=== PATIENT | female | born 1940 | race African-American/Black ===

== ENCOUNTER 2016-08-10 19:07 | Emergency (ER) | payer MEDICARE, MEDICAID ==
--- NOTE | 2016-08-10 19:26 | ER Document Report ---
ED Respiratory Problem - General Stated Complaint: GAGGING Time seen by provider: 19:26 Mode of Arrival: Stretcher Information source: Relative, Emergency Med Personnel TRAVEL OUTSIDE OF THE [place] IN LAST 30 DAYS: No - HPI Patient complains to provider of: Cough Onset: Just prior to arrival Duration: Better Quality of pain: No pain Cough: Nonproductive Associated symptoms: Cough Similar symptoms previously: Yes Notes: Patient is a 75-year-old female sent from local intermediate for cough, choking episode while trying to eat this evening, EMS reports that she recovered from this episode but daughter insisted that she be brought to the emergency room for evaluation, daughter at bedside reports that over the past 2 weeks patient' s condition has declined, she has a wet cough that is nonproductive and she has been having trouble eating - Related Data Allergies/Adverse Reactions: No Known Allergies Allergy (Verified 01/29/15 16:41) Past Medical History - General Information source: Relative, Outside Facility Records - Social History Smoking Status: Never Smoker Family History: Reviewed & Not Pertinent - Past Medical History Cardiac Medical History: Reports: Hx Hypercholesterolemia, Hx Hypertension Endocrine Medical History: Reports: Hx Diabetes Mellitus Type 2, Hx Hypothyroidism Malignancy Medical History: Reports: Hx Breast Cancer GI Medical History: Reports: Hx Gastroesophageal Reflux Disease Musculoskeltal Medical History: Reports Hx Arthritis, Reports Hx Muscle Weakness Psychiatric Medical History: Reports: Hx Anxiety, Hx Dementia, Hx Depression Past Surgical History: Reports: Hx Mastectomy - Left - Immunizations Hx Diphtheria, Pertussis, Tetanus Vaccination: Yes Review of Systems - Review of Systems Constitutional: No symptoms reported. denies: Fever EENT: No symptoms reported Cardiovascular: No symptoms reported Respiratory: Cough Gastrointestinal: No symptoms reported Genitourinary: No symptoms reported Female Genitourinary: No symptoms reported Musculoskeletal: No symptoms reported Skin: No symptoms reported Hematologic/Lymphatic: No symptoms reported Neurological/Psychological: Confusion -: Yes All other systems reviewed and negative Physical Exam - Vital signs Vitals: Temp Pulse Resp BP Pulse Ox 98.5 F 70 16 115/86 H 100 08/10/16 19:17 08/10/16 19:17 08/10/16 19:17 08/10/16 19:17 08/10/16 19:17 Interpretation: Normal - General General appearance: Alert In distress: None - HEENT Head: Normocephalic, Atraumatic Eyes: Normal Conjunctiva: Normal Extraocular movements intact: Yes Eyelashes: Normal Pupils: PERRL Mucous membranes: Normal Pharynx: Normal Neck: Normal - Respiratory Respiratory status: No respiratory distress Chest status: Nontender Breath sounds: Normal, Nonproductive cough Chest palpation: Normal - Cardiovascular Rhythm: Regular Heart sounds: Normal auscultation - Abdominal Inspection: Normal Distension: No distension Bowel sounds: Normal Tenderness: Nontender Organomegaly: No organomegaly - Back Back: Normal - Extremities General upper extremity: Other - Contracted General lower extremity: Other - Contracted - Neurological Alla Coma Scale Eye Opening: None Alla Coma Scale Verbal: Incomprehensible Alla Coma Scale Motor: Withdraws to Pain El[place] Coma Scale Total: 7 - Skin Skin Temperature: Warm Skin Moisture: Dry Skin Color: Normal Course - Re-evaluation Re-evalutation: 08/10/16 23:45 Patient was discussed with primary care provider, Dr. Bazzi, who recommends patient be started on antibiotics orally, and be discharged back to the intermediate, he will follow-up with patient for further evaluation and treatment This plan was discussed with patient's daughter who was quite insistent that patient needed to be admitted to the hospital because she has been declining over the past 2 weeks and she is fairly certain that she will "not make it the next 2-3 days at [facility]", I explained to patient's daughter that patient's vital signs have been stable since she has been in the emergency room , her blood work is normal, her chest x-ray shows no abnormalities, the only abnormality we found in the emergency room today is a urinary tract infection that should clear up with PO antibiotics 08/11/16 00:07 I went back in the room to speak with patient's daughter about my conversation with the primary care provider, she made a point to express her displeasure at the care that her mother received today, she inquired as to why patient did not get IV antibiotics or IV fluids and stated "she can be well on her way to recovery at this point if this was done already", she was also concerned that patient did not get anything to eat while in the emergency room, I attempted to explain to patient's daughter, Lucita, that based on patient's vital signs, blood work and physical exam finding she did not require IV fluids or IV antibiotics, she stated that her mother is now leaving the department in the same condition she came, to which I pointed out that she came in stable condition and we will be discharging her in stable condition, her vital signs have been stable, her workup is fairly unremarkable except for a urinary tract infection without serum leukocytosis, her chest x-ray is without acute findings , Lucita continued to express her displeasure at the fact that patient has been here in the emergency room for "several hours" and she feels as though "nothing has been done for her", at this point in time patient has been in the emergency room for a total of 5 hours, she was difficult to obtain blood from so I spent a considerable amount of time in the room with an ultrasound attempting to gain IV access and was able to get blood myself with nursing assistance, a catheterized urine was completed, and a chest x-ray was completed , patient remained on the monitor during her entire stay in the emergency room and her vital signs have remained stable the entire time, her blood work shows no signs of malnutrition or dehydration and she is ready to be discharged at this point in time, however while we are awaiting transport I will provide patient with some IV fluids and we will attempt to provide her with some by mouth intake as well - Vital Signs Vital signs: Temp Pulse Resp BP Pulse Ox 98.5 F 70 16 105/81 97 08/10/16 19:17 08/10/16 19:17 08/11/16 03:02 08/11/16 03:02 08/11/16 03:02 - Laboratory Result Diagrams: 08/10/16 22:21 08/10/16 22:21 Laboratory results interpreted by me: 08/10/16 08/10/16 20:20 22:21 Chloride 108 H Urine Nitrite POSITIVE H Ur Leukocyte Esterase SMALL H Urine Ascorbic Acid 40 H - Diagnostic Test Radiology reviewed: Image reviewed, Reports reviewed - EKG Interpretation by [place] EKG shows normal: Sinus rhythm Rate: Bradycardia Discharge - Discharge Clinical Impression: Urinary tract infection Qualifiers: Urinary tract infection type: site unspecified Hematuria presence: without hematuria Qualified Code(s): N39.0 - Urinary tract infection, site not specified Condition: Stable Disposition: HOME, SELF-CARE Instructions: Urinary Tract Infection ([facility]) Additional Instructions: Follow up with your primary care provider in one to 2 days. Return to the emergency room immediately if symptoms worsen or any additional concerns. Prescriptions: Nitrofurantoin/Nitrofuran Mac [Macrobid 100 mg Capsule] 100 mg PO BID #20 capsule Referrals: JOE BAZZI MD [Primary Care Provider] - Follow up as needed
[2016-08-10 22:10] LABS: APPEARANCE,URINE SLIGHTLY-CLOUDY; BILIRUBIN,URINE NEGATIVE (NEGATIVE); GLUCOSE, URINE NEGATIVE (NEGATIVE); KETONES,URINE NEGATIVE (NEGATIVE); LEUKOCYTE ESTERASE,URINE SMALL (NEGATIVE); NITRITE,URINE POSITIVE (NEGATIVE); PROTEIN,URINE NEGATIVE (NEGATIVE); URINE SPECIFIC GRAVITY 1.019; UROBILINOGEN,URINE NEGATIVE mg/dL (<2.0)
[2016-08-10 22:36] LABS: ABSOLUTE BASOPHILS # (AUTO) 0.1 10^3/uL (0.0-0.2); ABSOLUTE EOSINOPHILS # (AUTO) 0.3 10^3/uL (0.0-0.6); ABSOLUTE LYMPHOCYTES (AUTO) 2.9 10^3/uL (0.5-4.7); ABSOLUTE MONOCYTES (AUTO) 0.8 10^3/uL (0.1-1.4); EOSINOPHILS % (AUTO) 3.6 % (0-6); HEMATOCRIT 37.2 % (36.0-47.0); HEMOGLOBIN 12.6 g/dL (12.0-15.5); HGB HCT DIFFERENCE 0.6; LYMPHOCYTES % (AUTO) 41.5 % (13-45); MEAN CORPUSCULAR HEMOGLOBIN 31.4 pg (27.0-33.4); MEAN CORPUSCULAR HGB CONC 33.9 g/dL (32.0-36.0); MEAN CORPUSCULAR VOLUME 93 fl (80-97); MONOCYTES % (AUTO) 10.9 % (3-13); RED BLOOD COUNT 4.01 10^6/uL (3.72-5.28); RED CELL DISTRIBUTION WIDTH 13.4 % (11.5-14.0)
[2016-08-10 22:50] LABS: ALANINE AMINOTRANSFERASE 33 U/L (9-52); ALBUMIN 3.8 g/dL (3.5-5.0); ALKALINE PHOSPHATASE 81 U/L (38-126); ANION GAP 9 (5-19); ASPARTATE AMINO TRANSFERASE 28 U/L (14-36); BILIRUBIN,TOTAL 0.4 mg/dL (0.2-1.3); BLOOD UREA NITROGEN 15 mg/dL (7-20); CALCIUM 9.3 mg/dL (8.4-10.2); CARBON DIOXIDE 26 mmol/L (22-30); CHLORIDE 108 mmol/L (98-107); CREATININE RESULT 0.89 mg/dL (0.52-1.25); GLUCOSE 98 mg/dL (75-110); POTASSIUM 4.2 mmol/L (3.6-5.0); SODIUM 143.4 mmol/L (137-145); TOTAL PROTEIN 7.5 g/dL (6.3-8.2)
[2016-08-10] MEDS ORDERED: NITROFURANTOIN MONOHYD/M-CRYST 100 MG CAPSULE PO ONE (23:47)
[2016-08-11] MEDS ORDERED: NORMAL SALINE 1000 ML 1,000 ML IV PRN (00:11)
[2016-08-11] MEDS ORDERED: CEFTRIAXONE INJ 1000 MG VIAL IV ONE (00:12)
[2016-08-11 03:25] VITALS: BP 105/81
--- NOTE | 2016-08-11 08:02 | EKG REPORT ---
SEVERITY:- NORMAL ECG - SINUS RHYTHM : Confirmed by: Howard Quintana MD 11-Aug-2016 08:01:59
== END 2016-08-11 03:26 | disposition home or self-care (01) ==
LOC: ER 19:07
DX: N39.0 Urinary tract infection, site not specified (principal); R63.3 Feeding difficulties; R05 Cough; I10 Essential (primary) hypertension; E11.9 Type 2 diabetes mellitus without complications; R41.0 Disorientation, unspecified; R00.1 Bradycardia, unspecified; Z85.3 Personal history of malignant neoplasm of breast
CPT/HCPCS: 93005; 99285; 96361; 51701; 96365; 36415; 87086; 85025; 87088; 80053; 81001; 87186; 83880; 71010; 93010; J0696; J7030; A9270; J8499

== ENCOUNTER → 2017-02-17 | Outpatient (CLI) | payer MEDICARE, MEDICAID ==
[2017-02-17 11:33] LABS: ARTERIAL BLOOD BASE EXCESS 1.5 mmol/L; ARTERIAL BLOOD O2 SATURATION 96.8 % (94-98)
== END ==
LOC: LAB 10:47
PROVIDERS: ATTEND Internal Medicine
DX: R79.81 Abnormal blood-gas level (principal); E11.9 Type 2 diabetes mellitus without complications; D64.9 Anemia, unspecified; E03.9 Hypothyroidism, unspecified
CPT/HCPCS: 36600; 82803

== ENCOUNTER 2017-02-24 20:54 | Observation (INO) | payer MEDICARE, MEDICAID ==
--- NOTE | 2017-02-24 21:21 | ER Document Report ---
ED Fever - General Chief Complaint: Fever Stated Complaint: FEVER AND EVAL Time Seen by Provider: 02/24/17 21:17 Notes: The patient is a 76-year-old female, past medical history multiple CVAs, nonverbal, presents from [facility] by EMS with her daughter after she was having increased coughing and a temperature of 100.1 at the retirement. Patient's mental status is at baseline, according to daughter. Unable to provide any additional history. TRAVEL OUTSIDE OF THE [place] IN LAST 30 DAYS: No - Related Data Allergies/Adverse Reactions: No Known Allergies Allergy (Verified 01/29/15 16:41) Past Medical History - General Information source: Patient - Social History Smoking Status: Unknown if Ever Smoked Family History: Reviewed & Not Pertinent - Past Medical History Cardiac Medical History: Reports: Hx Hypercholesterolemia, Hx Hypertension Endocrine Medical History: Reports: Hx Diabetes Mellitus Type 2, Hx Hypothyroidism Malignancy Medical History: Reports: Hx Breast Cancer GI Medical History: Reports: Hx Gastroesophageal Reflux Disease Musculoskeltal Medical History: Reports Hx Arthritis, Reports Hx Muscle Weakness Psychiatric Medical History: Reports: Hx Anxiety, Hx Dementia, Hx Depression Past Surgical History: Reports: Hx Mastectomy - Left - Immunizations Hx Diphtheria, Pertussis, Tetanus Vaccination: Yes Review of Systems - Review of Systems -: Yes ROS unobtainable due to patient's medical condition Physical Exam - Vital signs Vitals: Temp 97.5 F 02/24/17 21:05 - Notes Notes: PHYSICAL EXAMINATION: GENERAL: Well-appearing, well-nourished and in no acute distress. HEAD: Atraumatic, normocephalic. EYES: Pupils equal round and reactive to light, extraocular movements intact, sclera anicteric, conjunctiva are normal. ENT: nares patent, oropharynx clear without exudates. Moist mucous membranes. NECK: Normal range of motion, supple without lymphadenopathy LUNGS: No respiratory distress. Lungs CTAB. Upper airway noises. HEART: Regular rate and rhythm without murmurs ABDOMEN: Soft, nontender, normoactive bowel sounds. No guarding, no rebound. No masses appreciated. EXTREMITIES: Contracted upper extremities. NEUROLOGICAL: At baseline. PSYCH: Normal mood, normal affect. SKIN: Warm, Dry, normal turgor, no rashes or lesions noted. Course - Re-evaluation Re-evalutation: Patient's mental status is at baseline, according to the daughter. She has evidence of a UTI on urinalysis and is afebrile in the emergency room. Her labs are unremarkable. Will discharge patient home with Keflex for possible early pyelonephritis and follow-up at primary care physician. - Vital Signs Vital signs: Temp Pulse Resp BP Pulse Ox 97.5 F 02/24/17 21:05 - Laboratory Result Diagrams: 02/24/17 21:09 02/24/17 21:09 Laboratory results interpreted by me: 02/24/17 02/24/17 02/24/17 21:09 21:09 21:36 Hgb 11.8 L Hct 35.4 L RDW 14.2 H Seg Neutrophils % 40.0 L Est GFR (Non-Af Amer) 50 L Glucose 135 H Urine Blood MODERATE H Ur Leukocyte Esterase LARGE H Urine Ascorbic Acid 40 H - Diagnostic Test Radiology reviewed: Image reviewed, Reports reviewed Radiology results interpreted by me: CXR: NAD Discharge - Discharge Clinical Impression: UTI (urinary tract infection) Qualifiers: Urinary tract infection type: site unspecified Hematuria presence: with hematuria Qualified Code(s): N39.0 - Urinary tract infection, site not specified ; R31.9 - Hematuria, unspecified Condition: Stable Disposition: HOME, SELF-CARE Additional Instructions: URINARY TRACT INFECTION: Your evaluation indicates that you have a urinary tract infection. This is due to germs growing in the bladder. This is a common problem. This infection usually responds quickly to antibiotics. Your antibiotic should be taken exactly as prescribed. Drink plenty of fluids -- three to four quarts a day. Occasionally, a bladder anesthetic will be prescribed to help stop the feeling of urgency until the antibiotic has a chance to clear the infection. This may cause your urine to be dark orange. Certain urine infections require a culture. If the doctor obtained a culture, the results will be back in two days. You should call to see if a change in treatment is needed. A repeat urinalysis after you finish treatment is often recommended. The physician will let you know if further testing is required. Call the doctor if you develop fever, chills, flank pain, inability to urinate, or blood in the urine. ANTIBIOTIC THERAPY: You have been given an antibiotic prescription. It's important that you take all the medication, unless instructed otherwise by your physician. Failure to complete the entire course can result in relapse of your condition. Common side effects of antibiotics include nausea, intestinal cramping, or diarrhea. Women may develop vaginal yeast infections, and babies can get yeast (thrush) in the mouth following the use of antibiotics. Contact your physician if you develop significant side effects from this medication. Allergy to this antibiotic can result in hives, wheezing, faintness, or itching. If symptoms of allergy occur, stop the medication and call the doctor. CEPHALEXIN: The antibiotic you've been prescribed is a member of the cephalosporin class. This type of antibiotic covers a wide variety of infections, including those of the skin, lungs, and urinary tract. It's useful for staph infections. This antibiotic is slightly similar to the penicillin family. In rare cases , a person who is allergic to penicillin will also be allergic to this medication. If you have had a severe allergic reaction to penicillin, and have not taken this antibiotic since that time, notify your doctor. Antibiotics which cover many germs ("broad spectrum" antibiotics) are more likely to cause diarrhea or "yeast" infections. Women prone to vaginal yeast problems may suffer an attack after taking this antibiotic. In infants, oral thrush (white spots "stuck" on the cheek) or yeast diaper rash may result. See your doctor if these problems occur. Call at once if you develop itching, hives , shortness of breath, or lightheadedness. FOLLOW-UP CARE: If you have been referred to a physician for follow-up care, call the physician s office for an appointment as you were instructed or within the next two days. If you experience worsening or a significant change in your symptoms, notify the physician immediately or return to the Emergency Department at any time for re-evaluation. Prescriptions: Cephalexin Monohydrate [Keflex 500 mg Capsule] 500 mg PO Q8H 7 Days capsule
[2017-02-24 21:32] LABS: ABSOLUTE BASOPHILS # (AUTO) 0.1 10^3/uL (0.0-0.2); ABSOLUTE EOSINOPHILS # (AUTO) 0.3 10^3/uL (0.0-0.6); ABSOLUTE LYMPHOCYTES (AUTO) 2.6 10^3/uL (0.5-4.7); ABSOLUTE MONOCYTES (AUTO) 0.7 10^3/uL (0.1-1.4); ABSOLUTE NEUT (AUTO) 2.4 10^3/uL (1.7-8.2); BASOPHILS % (AUTO) 0.9 % (0-2); EOSINOPHILS % (AUTO) 5.6 % (0-6); HEMATOCRIT 35.4 % (36.0-47.0); HEMOGLOBIN 11.8 g/dL (12.0-15.5); LYMPHOCYTES % (AUTO) 42.6 % (13-45); MEAN CORPUSCULAR HEMOGLOBIN 31.4 pg (27.0-33.4); MEAN CORPUSCULAR HGB CONC 33.4 g/dL (32.0-36.0); MEAN CORPUSCULAR VOLUME 94 fl (80-97); MONOCYTES % (AUTO) 10.9 % (3-13); RED BLOOD COUNT 3.77 10^6/uL (3.72-5.28); RED CELL DISTRIBUTION WIDTH 14.2 % (11.5-14.0); WHITE BLOOD COUNT 6.1 10^3/uL (4.0-10.5)
[2017-02-24 21:44] LABS: ALANINE AMINOTRANSFERASE 26 U/L (9-52); ALBUMIN 3.7 g/dL (3.5-5.0); ALKALINE PHOSPHATASE 80 U/L (38-126); ANION GAP 9 (5-19); ASPARTATE AMINO TRANSFERASE 27 U/L (14-36); BILIRUBIN,DIRECT 0.3 mg/dL (0.0-0.4); BILIRUBIN,TOTAL 0.3 mg/dL (0.2-1.3); BLOOD UREA NITROGEN 15 mg/dL (7-20); CALCIUM 9.3 mg/dL (8.4-10.2); CARBON DIOXIDE 28 mmol/L (22-30); CHLORIDE 107 mmol/L (98-107); CREATININE RESULT 1.07 mg/dL (0.52-1.25); GLUCOSE 135 mg/dL (75-110); LIPASE 97.2 U/L (23-300); POTASSIUM 3.9 mmol/L (3.6-5.0); SODIUM 143.8 mmol/L (137-145); TOTAL PROTEIN 7.2 g/dL (6.3-8.2)
[2017-02-24 21:58] LABS: APPEARANCE,URINE CLOUDY; BILIRUBIN,URINE NEGATIVE (NEGATIVE); GLUCOSE, URINE NEGATIVE (NEGATIVE); KETONES,URINE NEGATIVE (NEGATIVE); LEUKOCYTE ESTERASE,URINE LARGE (NEGATIVE); NITRITE,URINE NEGATIVE (NEGATIVE); PROTEIN,URINE NEGATIVE (NEGATIVE); URINE SPECIFIC GRAVITY 1.015; UROBILINOGEN,URINE NEGATIVE mg/dL (<2.0)
--- NOTE | 2017-02-24 21:59 | RADIOLOGY REPORT (SQ) ---
EXAM DESCRIPTION: CHEST SINGLE VIEW COMPLETED DATE/TIME: 02/24/2017 9:42 pm REASON FOR STUDY: fever, cough COMPARISON: 08/10/2016 EXAM PARAMETERS: NUMBER OF VIEWS: One view. TECHNIQUE: Single frontal radiographic view of the chest acquired. RADIATION DOSE: NA LIMITATIONS: None. FINDINGS: LUNGS AND PLEURA: No acute opacities, masses or pneumothorax. No pleural effusion. MEDIASTINUM AND HILAR STRUCTURES: Stable. HEART AND VASCULAR STRUCTURES: Stable. BONES: No acute findings. HARDWARE: None in the chest. OTHER: No other significant finding. IMPRESSION: NO ACUTE RADIOGRAPHIC FINDING IN THE CHEST. TECHNICAL DOCUMENTATION: JOB ID: [id number]
[2017-02-24] MEDS ORDERED: CEFTRIAXONE 1 GM/D5W RTU 1 GM/50 ML RTUPB IV ONE (22:28)
[2017-02-24 22:51] LABS: VENOUS BLOOD BASE EXCESS 3.7 mmol/L; VENOUS BLOOD HCO3 30.1 mmol/L (20-32); VENOUS BLOOD PCO2 53.1 mmHg (35-63); VENOUS BLOOD PH 7.37 (7.30-7.42)
[2017-02-25] MEDS ORDERED: LEVOFLOXACIN 750 MG/D5W RTU 750 MG/150 ML RTUPB IV SCH ×2 (10:00)
[2017-02-25] MEDS ORDERED: (PENDING PHARMACY ID) (Juniper/Cala/Znox/Pet,Wh/Lan [Endit Ointment] 1 APPLIC) TP PRN (19:18)
[2017-02-25] MEDS ORDERED: SIMETHICONE 80 MG TAB.CHEW PO PRN (19:18)
[2017-02-25] MEDS ORDERED: (PENDING PHARMACY ID) (Melatonin/Pyridoxine Hcl (B6) [Melatonin 3 Mg Tablet] 1 EACH) PO PRN (19:18)
[2017-02-25] MEDS ORDERED: FOLIC ACID PO SCH (19:30)
[2017-02-25] MEDS ORDERED: [UNRECOGNIZED DRUG - OTHER] PO SCH (19:30)
[2017-02-25] MEDS ORDERED: LUT PO SCH (19:30)
[2017-02-25] MEDS ORDERED: MV FE OTHER MIN PO SCH (19:30)
--- NOTE | 2017-02-25 19:32 | PDOC H&P ---
History of Present Illness Admission Date/PCP: 02/24/17 23:30 JOE BAZZI MD History of Present Illness: KAILEE LEONE is a 76 year old female, She is a resident of the half-way at [facility] she was transferred from the half-way to the emergency room for evaluation of altered mental status. She was evaluated in the emergency room, part of the evaluation included CT scan of the head, blood work, the CT head did not show any acute stroke the urinalysis, dipstick showed positive leukocyte esterase test, pyuria does suggest UTI. The hemogram was normal the chemistry was normal, patient was to be discharged from the emergency room back to the half-way where she resides but patient daughter said she does not feel comfortable to have patient discharged back to half-way because whenever she gets UTI she tends to get very sick. she was requesting that patient needed to be admitted to the hospital. Patient is nonverbal, she has contracted extremities, she has a history of Parkinson disease. I spoke to the patient's daughter for a long time today about the mom , she expresses some concern regarding the fact that her mother gets congested and she thinks that she may have pneumonia. The chest x-ray that was done in the emergency room was negative for pneumonia. Patient have Parkinson disease and probably a remote history of stroke. I advised patient that regular deep tracheal suctioning will not be in the best interest because this could induce induced trauma to the mucosa of the pharynx and the airway, the best option would be for her to use scopolamine to reduce secretion in the upper respiratory system. No history could be obtained from the patient because she is nonverbal though she is alert she does not seem to be altered when I saw the patient on the floor. MRI of the head is ordered to further define the brain parenchyma. Past Medical History Cardiac Medical History: Reports: Hyperlipidema, Hypertension Neurological Medical History: Reports: Other - Parkinson's disease Endocrine Medical History: Reports: Diabetes Mellitus Type 2, Hypothyroidism Malignancy Medical History: Reports: Breast Cancer GI Medical History: Reports: Gastroesophageal Reflux Disease Musculoskeltal Medical History: Reports: Arthritis Psychiatric Medical History: Reports: Dementia, Depression Hematology: Reports: Anemia Past Surgical History Past Surgical History: Reports: Mastectomy - Left Social History Smoking Status: Unknown if Ever Smoked Frequency of Alcohol Use: None Hx Recreational Drug Use: No Hx Prescription Drug Abuse: No Family History Family History: Reviewed & Not Pertinent Parental Family History Reviewed: Yes Children Family History Reviewed: Yes Sibling(s) Family History Reviewed.: Yes Medication/Allergy Home Medications: Ascorbic Acid [Vitamin C 500 mg Tablet] 500 mg PO BID 02/25/17 Aspirin [Aspirin 81 mg Chewable Tablet] 81 mg PO DAILY 02/25/17 Carbidopa/Levodopa [Sinemet 25-100 mg Tablet] 1 tab PO BID 02/25/17 Diclofenac Epolamine [Flector] 1 each TP BID 02/25/17 Fluticasone Propionate [Flonase Nasal [place] 50 Mcg/[place] 16 gm] 2 sprays NASL DAILY 02/25/17 Folic Acid/Mv,Fe,Other Min/Lut [Certavite W/Lutein Tablet] 1 each PO DAILY 02/25 Ipratropium/Albuterol Sulfate [Duoneb 3 ml Ampul] 3 ml NEB [id number] PRN 02/25/17 Juniper/Julia/Znox/Pet,Wh/Shemar [Endit Ointment] 1 applic TP ASDIR PRN 02/25/17 Levothyroxine Sodium [Synthroid 0.075 mg Tablet] 0.075 mg PO DAILY 02/25/17 Melatonin/Pyridoxine HCl (B6) [Melatonin 3 mg Tablet] 1 each PO HSP PRN Mirtazapine [Remeron 15 mg Tablet] 7.5 mg PO QHS 02/25/17 Polyvinyl Alcohol [Liquitears] 1 drop OU BID 02/25/17 Simethicone 80 mg PO BIDP PRN 02/25/17 Simvastatin [Zocor 20 mg Tablet] 20 mg PO QHS 02/25/17 Valsartan [Diovan 40 mg Tablet] 40 mg PO DAILY 02/25/17 Allergies/Adverse Reactions: No Known Allergies Allergy (Verified 01/29/15 16:41) Review of Systems ROS unobtainable: Due to mental status Physical Exam Vital Signs: Temp Pulse Resp BP Pulse Ox 98.4 F 48 L 16 120/98 H 90 L 02/25/17 11:04 02/25/17 11:04 02/25/17 11:04 02/25/17 11:04 02/25/17 11:04 Intake & Output 02/24/17 02/25/17 02/26/17 06:59 06:59 06:59 Intake Total 250 Balance 250 Weight 74.5 kg General appearance: PRESENT: no acute distress Eye exam: PRESENT: PERRLA Respiratory exam: PRESENT: clear to auscultation jojo Cardiovascular exam: PRESENT: +S1, +S2 GI/Abdominal exam: PRESENT: soft Extremities exam: PRESENT: other - There is contraction of the upper extremities Neurological exam: PRESENT: alert Results Impressions: Chest X-Ray 02/24/17 21:17 IMPRESSION: NO ACUTE RADIOGRAPHIC FINDING IN THE CHEST. Assessment & Plan - Diagnosis (1) UTI (urinary tract infection) Qualifiers: Urinary tract infection type: site unspecified Hematuria presence: with hematuria Qualified Code(s): N39.0 - Urinary tract infection, site not specified; R31.9 - Hematuria, unspecified Is this a current diagnosis for this admission?: Yes Plan: Patient is admitted for observation she is treated with IV antibiotic (2) Parkinson disease Is this a current diagnosis for this admission?: Yes (3) Metabolic encephalopathy Is this a current diagnosis for this admission?: Yes
[2017-02-25] MEDS ORDERED: ASCORBIC ACID 500 MG TABLET PO ONE (20:00)
--- NOTE | 2017-02-25 20:10 | RADIOLOGY REPORT (SQ) ---
EXAM DESCRIPTION: MRI HEAD WITHOUT COMPLETED DATE/TIME: 02/25/2017 7:53 pm REASON FOR STUDY: cva COMPARISON: None. TECHNIQUE: Multiplanar imaging includes non-contrasted T1, T2, FLAIR, and diffusion with ADC map seq uences. Images stored on PACS. LIMITATIONS: None. FINDINGS: ANATOMY: No anomalies. Normal vascular flow voids. Pituitary fossa normal. CSF SPACES: Atrophy induced prominence of ventricles and CSF spaces. CEREBRUM: High signal intensity lesions scattered throughout the white matter on FLAIR imaging with d istribution suggesting micro-vascular ischemic changes. No evidence of hemorrhage, mass, or extraaxi al fluid collection. POSTERIOR FOSSA: No signal alteration. No hemorrhage. No edema, masses or mass effect. Internal johnnie tory canals, cerebello-pontine angles, mastoids normal. DIFFUSION IMAGING: Negative for acute or sub-acute infarction. ORBITS: No masses. Globes normal. PARANASAL SINUSES: No fluid levels. Mucosa normal. OTHER: No other significant finding. IMPRESSION: Negative for acute or sub-acute infarction. EVIDENCE OF ACUTE STROKE: NO. TECHNICAL DOCUMENTATION: JOB ID: [id number] [employer]- All Rights Reserved
[2017-02-25] MEDS ORDERED: CARBIDOPA/LEVODOPA 25-100 MG TABLET PO ONE (20:30)
[2017-02-25] MEDS ORDERED: LEVOTHYROXINE SODIUM 0.075 MG TABLET PO ONE (20:30)
[2017-02-25] MEDS ORDERED: ASPIRIN 81 MG TABLET, CHEWABLE PO ONE (20:30)
[2017-02-25] MEDS ORDERED: VALSARTAN 40 MG TABLET PO ONE (21:00)
[2017-02-25] MEDS: SIMVASTATIN 10 MG TABLET PO SCH (21:14)
[2017-02-25] MEDS: MIRTAZAPINE 15 MG TABLET PO SCH (21:14)
[2017-02-26] MEDS ORDERED: LEVOTHYROXINE SODIUM 0.075 MG TABLET PO SCH (08:00)
[2017-02-26] MEDS ORDERED: VALSARTAN 40 MG TABLET PO SCH (10:00)
[2017-02-26] MEDS ORDERED: PRENATAL VITAMIN W-O CA NO5/FE FUMARATE/FA CAPSULE PO SCH (10:00)
[2017-02-26] MEDS ORDERED: ASPIRIN 81 MG TABLET, CHEWABLE PO SCH (10:00)
[2017-02-26] MEDS: CARBIDOPA/LEVODOPA 25-100 MG TABLET PO SCH ×2 (11:14→17:04)
[2017-02-26] MEDS: ASCORBIC ACID 500 MG TABLET PO SCH ×2 (11:14→17:04)
[2017-02-26] MEDS: POLYVINYL ALCOHOL 1.4% OPH SOLN 15 ML OU SCH ×2 (11:23→17:05)
--- NOTE | 2017-02-26 20:37 | PDOC TRANSFER SUMMARY ---
General - Admit/Disc Date/PCP Admission Date/Primary Care Provider: 02/24/17 23:30 JOE BAZZI MD Discharge Date: 02/26/17 - Discharge Diagnosis (1) UTI (urinary tract infection) Is this a current diagnosis for this admission?: Yes (2) Parkinson disease Is this a current diagnosis for this admission?: Yes (3) Metabolic encephalopathy Is this a current diagnosis for this admission?: Yes - Additional Information Home Medications: Ascorbic Acid [Vitamin C 500 mg Tablet] 500 mg PO BID 02/25/17 Aspirin [Aspirin 81 mg Chewable Tablet] 81 mg PO DAILY 02/25/17 Carbidopa/Levodopa [Sinemet 25-100 mg Tablet] 1 tab PO BID 02/25/17 Fluticasone Propionate [Flonase Nasal Riva 50 Mcg/Riva 16 gm] 2 sprays NASL DAILY 02/25/17 Folic Acid/Mv,Fe,Other Min/Lut [Certavite W/Lutein Tablet] 1 each PO DAILY 02/25 Ipratropium/Albuterol Sulfate [Duoneb 3 ml Ampul] 3 ml NEB [id number] PRN 02/25/17 Juniper/Julia/Znox/Pet,Wh/Shemar [Endit Ointment] 1 applic TP ASDIR PRN 02/25/17 Levothyroxine Sodium [Synthroid 0.075 mg Tablet] 0.075 mg PO DAILY 02/25/17 Melatonin/Pyridoxine HCl (B6) [Melatonin 3 mg Tablet] 1 each PO HSP PRN Mirtazapine [Remeron 15 mg Tablet] 7.5 mg PO QHS 02/25/17 Polyvinyl Alcohol [Liquitears] 1 drop OU BID 02/25/17 Simethicone 80 mg PO BIDP PRN 02/25/17 Simvastatin [Zocor 20 mg Tablet] 20 mg PO QHS 02/25/17 Valsartan [Diovan 40 mg Tablet] 40 mg PO DAILY 02/25/17 Ciprofloxacin 500 mg PO BID #10 ml 02/26/17 History of Present Illness Admission Date/PCP: 02/24/17 23:30 JOE BAZZI MD History of Present Illness: KAILEE LEONE is a 76 year old female, She is a resident of the correction [facility] she was transferred from the correction to the emergency room for evaluation of altered mental status. She was evaluated in the emergency room, part of the evaluation included CT scan of the head, blood work, the CT head did not show any acute stroke the urinalysis, dipstick showed positive leukocyte esterase test, pyuria does suggest UTI. The hemogram was normal the chemistry was normal, patient was to be discharged from the emergency room back to the correction where she resides but patient daughter said she does not feel comfortable to have patient discharged back to correction because whenever she gets UTI she tends to get very sick. she was requesting that patient needed to be admitted to the hospital. Patient is nonverbal, she has contracted extremities, she has a history of Parkinson disease. I spoke to the patient's daughter for a long time today about the mom , she expresses some concern regarding the fact that her mother gets congested and she thinks that she may have pneumonia. The chest x-ray that was done in the emergency room was negative for pneumonia. Patient have Parkinson disease and probably a remote history of stroke. I advised patient that regular deep tracheal suctioning will not be in the best interest because this could induce induced trauma to the mucosa of the pharynx and the airway, the best option would be for her to use scopolamine to reduce secretion in the upper respiratory system. No history could be obtained from the patient because she is nonverbal though she is alert she does not seem to be altered when I saw the patient on the floor. MRI of the head is ordered to further define the brain parenchyma. Hospital Course Hospital Course: Patient was admitted for the management of urinary tract infection associated with altered mental status. She was empirically treated with IV Levaquin for presumptive UTI, the dipstick, urinalysis that was done was positive for leukocyte esterase, microscopy of the urinalysis showed pyuria. The patient's daughter was concerned regarding the diagnosis of possible stroke versus dementia versus Parkinson disease, MRI brain was done, it was negative for any acute or chronic stroke. Patient had episode of intermittent tremors, she has contracted upper extremities she carries a diagnosis of Parkinson disease. I explained to the daughter that part of her symptoms is from her disease process of Parkinson's ,the tremor, the rigidity and the contraction of the extremity with dementia is all consistent with Parkinson disease with dementia. Physical Exam Vital Signs: Temp Pulse Resp BP Pulse Ox 98.8 F 57 L 14 119/88 H 100 02/26/17 14:22 02/26/17 14:22 02/26/17 14:22 02/26/17 14:22 02/26/17 14:22 Intake & Output 02/25/17 02/26/17 02/27/17 06:59 06:59 06:59 Intake Total 250 0 Balance 250 0 Weight 74.5 kg 75.2 kg General appearance: PRESENT: no acute distress Eye exam: PRESENT: PERRLA Respiratory exam: PRESENT: clear to auscultation jojo Cardiovascular exam: PRESENT: +S1, +S2 GI/Abdominal exam: PRESENT: soft Neurological exam: PRESENT: alert Results Impressions: Chest X-Ray 02/24/17 21:17 IMPRESSION: NO ACUTE RADIOGRAPHIC FINDING IN THE CHEST. Head MRI 02/25/17 00:00 IMPRESSION: Negative for acute or sub-acute infarction. EVIDENCE OF ACUTE STROKE: NO.
[2017-02-26] MEDS: SIMVASTATIN 10 MG TABLET PO SCH (21:14)
[2017-02-26] MEDS: MIRTAZAPINE 15 MG TABLET PO SCH (21:14)
[2017-02-26] MEDS ORDERED: FLUTICASONE NASAL SPRAY 50 MCG/SPRY 120 SPRAY/16 GM NASL SCH (22:00)
[2017-02-27 08:39] VITALS: BP 126/91
== END 2017-02-27 11:30 ==
LOC: ER 20:54 → EH 22:57 → UNDOADMOB 22:57 → INTOOBSV 22:57 → OBSVTOIN 22:57 → EH 23:30 → INTOOBSV 23:30 → OBSVTOIN 23:30 → 4S 02-25 01:05 → EH 02-25 01:05
PROVIDERS: ADMIT Internal Medicine; ATTEND Internal Medicine
DX: N39.0 Urinary tract infection, site not specified (principal); R31.9 Hematuria, unspecified; G20 Parkinson's disease; F02.80 Dementia in other diseases classified elsewhere, unspecified severity, without behavioral disturbance, psychotic disturbance, mood disturbance, and anxiety; G93.41 Metabolic encephalopathy; R05 Cough; I10 Essential (primary) hypertension; E11.9 Type 2 diabetes mellitus without complications; E78.5 Hyperlipidemia, unspecified; E03.9 Hypothyroidism, unspecified; R09.89 Other specified symptoms and signs involving the circulatory and respiratory systems; Z79.899 Other long term (current) drug therapy; Z79.82 Long term (current) use of aspirin; Z85.3 Personal history of malignant neoplasm of breast; Z90.12 Acquired absence of left breast and nipple; Z86.73 Personal history of transient ischemic attack (TIA), and cerebral infarction without residual deficits
CPT/HCPCS: 36415; 70551; 71010; 80053; 81001; 82803; 83690; 84484; 85025; 87040; 96365; 99285; G0378; J0696; J1956; J3490

== ENCOUNTER 2017-04-01 20:24 | Emergency (ER) | payer MEDICARE, MEDICAID ==
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
--- NOTE | 2017-04-01 21:31 | RADIOLOGY REPORT (SQ) ---
EXAM DESCRIPTION: CHEST SINGLE VIEW COMPLETED DATE/TIME: 04/01/2017 9:22 pm REASON FOR STUDY: Fatigue, occ cough COMPARISON: 02/24/2017 EXAM PARAMETERS: NUMBER OF VIEWS: One view. TECHNIQUE: Single frontal radiographic view of the chest acquired. RADIATION DOSE: NA LIMITATIONS: Patient has made a shallow inspiration. FINDINGS: LUNGS AND PLEURA: No opacities, masses or pneumothorax. No pleural effusion. MEDIASTINUM AND HILAR STRUCTURES: No masses. Contour normal. HEART AND VASCULAR STRUCTURES: Heart normal in size. Normal vasculature. BONES: No acute findings. HARDWARE: None in the chest. OTHER: No other significant finding. IMPRESSION: NO ACUTE RADIOGRAPHIC FINDING IN THE CHEST. TECHNICAL DOCUMENTATION: JOB ID: [id number]
[2017-04-01 22:07] LABS: ABSOLUTE BASOPHILS # (AUTO) 0.1 10^3/uL (0.0-0.2); ABSOLUTE EOSINOPHILS # (AUTO) 0.4 10^3/uL (0.0-0.6); ABSOLUTE LYMPHOCYTES (AUTO) 2.4 10^3/uL (0.5-4.7); ABSOLUTE MONOCYTES (AUTO) 0.7 10^3/uL (0.1-1.4); ABSOLUTE NEUT (AUTO) 3.4 10^3/uL (1.7-8.2); BASOPHILS % (AUTO) 0.9 % (0-2); EOSINOPHILS % (AUTO) 5.4 % (0-6); HEMATOCRIT 38.8 % (36.0-47.0); HEMOGLOBIN 12.9 g/dL (12.0-15.5); HGB HCT DIFFERENCE -0.1; LYMPHOCYTES % (AUTO) 34.4 % (13-45); MEAN CORPUSCULAR HGB CONC 33.3 g/dL (32.0-36.0); MEAN CORPUSCULAR VOLUME 93 fl (80-97); MONOCYTES % (AUTO) 10.4 % (3-13); RED BLOOD COUNT 4.16 10^6/uL (3.72-5.28); RED CELL DISTRIBUTION WIDTH 14.2 % (11.5-14.0); SEGMENTED NEUTROPHILS % (AUTO) 48.9 % (42-78)
[2017-04-01 22:14] LABS: PROTHROMBIN TIME 14.1 SEC (11.4-15.4)
[2017-04-01 22:23] LABS: ALANINE AMINOTRANSFERASE 25 U/L (9-52); ALBUMIN 3.7 g/dL (3.5-5.0); ALKALINE PHOSPHATASE 76 U/L (38-126); ANION GAP 10 (5-19); ASPARTATE AMINO TRANSFERASE 23 U/L (14-36); BILIRUBIN,DIRECT 0.3 mg/dL (0.0-0.4); BILIRUBIN,TOTAL 0.3 mg/dL (0.2-1.3); BLOOD UREA NITROGEN 14 mg/dL (7-20); CALCIUM 9.7 mg/dL (8.4-10.2); CARBON DIOXIDE 26 mmol/L (22-30); CHLORIDE 109 mmol/L (98-107); CREATINE KINASE 53 U/L (30-135); CREATININE RESULT 0.98 mg/dL (0.52-1.25); GLUCOSE 132 mg/dL (75-110); SODIUM 144.6 mmol/L (137-145); TOTAL PROTEIN 7.1 g/dL (6.3-8.2)
[2017-04-01 23:27] LABS: APPEARANCE,URINE CLOUDY; BILIRUBIN,URINE NEGATIVE (NEGATIVE); GLUCOSE, URINE NEGATIVE (NEGATIVE); KETONES,URINE NEGATIVE (NEGATIVE); LEUKOCYTE ESTERASE,URINE LARGE (NEGATIVE); NITRITE,URINE NEGATIVE (NEGATIVE); PROTEIN,URINE 30 mg/dL (NEGATIVE); URINE SPECIFIC GRAVITY 1.018; UROBILINOGEN,URINE NEGATIVE mg/dL (<2.0)
--- NOTE | 2017-04-02 01:39 | RADIOLOGY REPORT (SQ) ---
EXAM DESCRIPTION: CT CERVICAL SPINE WITHOUT COMPLETED DATE/TIME: 04/02/2017 12:31 am REASON FOR STUDY: neck pain COMPARISON: None. TECHNIQUE: Axial images acquired through the cervical spine without intravenous contrast. Images re viewed with lung, soft tissue and bone windows. Reconstructed coronal and sagittal MPR images review ed. Images stored on PACS. All CT scanners at this facility use dose modulation, iterative reconstruction, and/or weight based d osing when appropriate to reduce radiation dose to as low as reasonably achievable (ALARA). [facility]: Dose Right [facility]: CareDose [facility]: Dose Right [facility]: Teradose 4D [facility]: Smart [employer] RADIATION DOSE: Up-to-date CT equipment and radiation dose reduction techniques were employed. CTDIv ol: 10.4 mGy. DLP: 243 mGy-cm. mGy. LIMITATIONS: None. FINDINGS: ALIGNMENT: 0.3 cm degenerative C3, C4, and C5 retrolisthesis. MINERALIZATION: Normal. VERTEBRAL BODIES: No fractures or dislocation. Mild anterior vertebral wedging at the C5 level. DISCS: Moderate -severe disc desiccation between the C2 and C7 levels with [id number] spinal an d foraminal canal stenoses between the C3 and C7 levels. . FACETS, LATERAL MASSES, POSTERIOR ELEMENTS: No fractures. No dislocation. No acute findings. HARDWARE: None in the spine. VISUALIZED RIBS: No fractures. LUNG APICES AND SOFT TISSUES: No significant or acute findings. OTHER: 2.2 cm by 1.5 cm nodular lesion at the posterosuperior aspect of the left thyroid lobe may in dicate lymphadenopathy or thyroid mass. Mild nonspecific mediastinal lymphadenopathy. IMPRESSION: 1. Indeterminate 2.2 cm lesion of the left inferior neck may indicate lymphadenopathy o r thyroid mass. Correlation with thyroid sonogram recommended. 2. Disc desiccation spondylosis cau se [id number] spinal and foraminal canal stenoses and mild degenerative malalignment. TECHNICAL DOCUMENTATION: JOB ID: [id number] Quality ID # [id number]: Final reports with documentation of one or more dose reduction techniques (e.g., Au tomated exposure control, adjustment of the mA and/or kV according to patient size, use of iterative reconstruction technique) 2010 [employer]- All Rights Reserved
[2017-04-02] MEDS ORDERED: NORMAL SALINE 1000 ML 1,000 ML IV ONE (02:46)
--- NOTE | 2017-04-02 02:48 | RADIOLOGY REPORT (SQ) ---
EXAM DESCRIPTION: U/S RETROPERITON (RENAL/AORTA) COMPLETED DATE/TIME: 04/02/2017 1:54 am REASON FOR STUDY: UTI, wbc clumps COMPARISON: CT, 01/19/2014. TECHNIQUE: Dynamic and static grayscale images acquired of the kidneys and bladder and recorded on P ACS. Additional selected color Doppler and spectral images recorded. LIMITATIONS: None. FINDINGS: RIGHT KIDNEY: Normal size, 8.7 cm. Normal echogenicity. No solid or suspicious masses. No hydronephrosis. No calcifications. 1.9 cm likely benign exophytic cyst of the right kidney without s uspicious interval change, not definitively characterized. LEFT KIDNEY: Normal size, 9.3 Center. Normal echogenicity. No solid or suspicious masses. No hydrone phrosis. No calcifications. BLADDER: No masses. Left ureteral jet flow demonstrated, nonspecific. OTHER FINDINGS: No other significant finding. IMPRESSION: No acute findings. TECHNICAL DOCUMENTATION: JOB ID: [id number] [employer]- All Rights Reserved
[2017-04-02] MEDS ORDERED: CEFTRIAXONE 1 GM/D5W RTU 1 GM/50 ML RTUPB IV ONE (03:00)
--- NOTE | 2017-04-02 03:53 | EKG REPORT ---
SEVERITY:- ABNORMAL ECG - SINUS RHYTHM CONSIDER LEFT VENTRICULAR HYPERTROPHY : Confirmed by: Amira Morales MD 02-Apr-2017 03:53:32
[2017-04-02 04:28] VITALS: BP 125/69
== END 2017-04-02 06:27 | disposition home or self-care (01) ==
LOC: ER 20:24
DX: N39.0 Urinary tract infection, site not specified (principal); M54.2 Cervicalgia; E11.9 Type 2 diabetes mellitus without complications; I10 Essential (primary) hypertension; G30.9 Alzheimer's disease, unspecified; F02.80 Dementia in other diseases classified elsewhere, unspecified severity, without behavioral disturbance, psychotic disturbance, mood disturbance, and anxiety; G20 Parkinson's disease; R53.83 Other fatigue
CPT/HCPCS: 93005; 99284; 51701; 96365; 36415; 87086; 82553; 82550; 85025; 85610; 85730; 87088; 80053; 81001; 87186; 71010; 76770; 72125; 93010; J7030; J0696

== ENCOUNTER 2017-12-10 11:16 | Emergency (ER) | payer MEDICARE, MEDICAID ==
[2017-12-10] MEDS ORDERED: ALBUTEROL SULFATE 0.083% NEB 2.5 MG/3 ML AMPUL NEB ONE (11:58)
[2017-12-10 13:21] LABS: ABSOLUTE EOSINOPHILS # (AUTO) 0.4 10^3/uL (0.0-0.6); ABSOLUTE LYMPHOCYTES (AUTO) 2.2 10^3/uL (0.5-4.7); ABSOLUTE MONOCYTES (AUTO) 0.8 10^3/uL (0.1-1.4); ABSOLUTE NEUT (AUTO) 6.2 10^3/uL (1.7-8.2); BASOPHILS % (AUTO) 0.5 % (0-2); EOSINOPHILS % (AUTO) 4.4 % (0-6); HEMATOCRIT 35.5 % (36.0-47.0); HEMOGLOBIN 12.2 g/dL (12.0-15.5); LYMPHOCYTES % (AUTO) 23.1 % (13-45); MEAN CORPUSCULAR HEMOGLOBIN 32.4 pg (27.0-33.4); MEAN CORPUSCULAR HGB CONC 34.5 g/dL (32.0-36.0); MEAN CORPUSCULAR VOLUME 94 fl (80-97); MONOCYTES % (AUTO) 8.1 % (3-13); PLATELET COUNT 407 10^3/uL (150-450); RED BLOOD COUNT 3.78 10^6/uL (3.72-5.28); RED CELL DISTRIBUTION WIDTH 13.2 % (11.5-14.0); SEGMENTED NEUTROPHILS % (AUTO) 63.9 % (42-78); TOTAL CELLS COUNTED % (AUTO) 100 %; WHITE BLOOD COUNT 9.7 10^3/uL (4.0-10.5)
[2017-12-10 13:32] LABS: INTERNATIONAL RATION (INR) 1.03
[2017-12-10 13:33] LABS: PARTIAL THROMBOPLASTIN TIME 36.5 SEC (23.5-35.8)
[2017-12-10 13:47] LABS: ALANINE AMINOTRANSFERASE 29 U/L (9-52); ALBUMIN 4.2 g/dL (3.5-5.0); ALKALINE PHOSPHATASE 89 U/L (38-126); ANION GAP 12 (5-19); ASPARTATE AMINO TRANSFERASE 32 U/L (14-36); BILIRUBIN,DIRECT 0.3 mg/dL (0.0-0.4); BILIRUBIN,TOTAL 0.4 mg/dL (0.2-1.3); BLOOD UREA NITROGEN 22 mg/dL (7-20); CALCIUM 10.1 mg/dL (8.4-10.2); CARBON DIOXIDE 35 mmol/L (22-30); CHLORIDE 101 mmol/L (98-107); GLUCOSE 137 mg/dL (75-110); POTASSIUM 4.4 mmol/L (3.6-5.0); SODIUM 147.7 mmol/L (137-145); TOTAL PROTEIN 8.2 g/dL (6.3-8.2)
--- NOTE | 2017-12-10 13:48 | ER Document Report ---
ED General - General Chief Complaint: Respiratory Distress Stated Complaint: VAGINAL BLEEDING Time Seen by Provider: 12/10/17 11:19 Mode of Arrival: Medic Information source: Relative - daughter Cannot obtain history due to: Dementia Notes: Patient presents to emergency department via EMS for complaints of vaginal bleeding and wheezing. Patient is nonverbal, non ambulatory with contractures with history of Alzheimer's dementia. Daughter reports that patient recently was discharged from [facility]. At that time she was admitted for respiratory failure. Daughter reports mom received a hysteroscopy and D&C. Daughter reports that last night when she gave mother a bath she noticed some pink tinge on the washcloth that she cleaned her vaginal area. She reports upon cleaning this morning she noticed a spotting of bright red bleeding. Paramedics report upon arrival patient was on 2 L nasal cannula O2 sats were low. They placed patient on a nonrebreather to get her 02sat up to 100%. upon arrival patient was placed on bipap. TRAVEL OUTSIDE OF THE [place] IN LAST 30 DAYS: No - HPI Onset: Yesterday Onset/Duration: Worse Quality of pain: No pain Associated symptoms: None Exacerbated by: Denies Relieved by: Denies Similar symptoms previously: Yes Recently seen / treated by doctor: Yes - Related Data Allergies/Adverse Reactions: No Known Allergies Allergy (Verified 01/29/15 16:41) Past Medical History - General Information source: Relative - daughter - Social History Smoking Status: Unknown if Ever Smoked Cigarette use (# per day): No Frequency of alcohol use: None Drug Abuse: None Lives with: Family Family History: Reviewed & Not Pertinent Patient has suicidal ideation: No Patient has homicidal ideation: No - Past Medical History Cardiac Medical History: Reports: Hx Hypercholesterolemia, Hx Hypertension Endocrine Medical History: Reports: Hx Diabetes Mellitus Type 2, Hx Hypothyroidism Renal/ Medical History: Denies: Hx Peritoneal Dialysis Malignancy Medical History: Reports: Hx Breast Cancer GI Medical History: Reports: Hx Gastroesophageal Reflux Disease Musculoskeltal Medical History: Reports Hx Arthritis, Reports Hx Muscle Weakness Psychiatric Medical History: Reports: Hx Anxiety, Hx Dementia, Hx Depression, Other - Alzheimer's Past Surgical History: Reports: Hx Mastectomy - Left - Immunizations Hx Diphtheria, Pertussis, Tetanus Vaccination: Yes Review of Systems - Review of Systems Notes: Review HPI for review of systems., All other systems negative Physical Exam - Vital signs Vitals: Resp Pulse Ox 21 H 100 12/10/17 11:16 12/10/17 11:16 - General General appearance: Other - nonverbal, nonambulatory In distress: None - HEENT Head: Normocephalic Eyes: Normal - Respiratory Respiratory status: No respiratory distress Chest status: Nontender Breath sounds: Wheezing Chest palpation: Normal - Cardiovascular Rhythm: Regular Heart sounds: Normal auscultation - Abdominal Inspection: Other - gtube in place Distension: No distension Tenderness: Nontender - Genitourinary Notes: dried blood noted on bilateral thighs - Back Back: Normal - Extremities Hand: Other - contracted - Neurological Neuro grossly intact: No Cognition: Other - nonverbal Alla Coma Scale Eye Opening: Spontaneous [place] Coma Scale Verbal: None - moans - Skin Skin Temperature: Warm Skin Moisture: Dry Skin irregularity: Decubitus ulcer - stage II Decubitus x2 on left buttocks #1= 3cm oval #2 1 cm Course - Re-evaluation Re-evalutation: 12/10/17 14:14 bipap removed pt placed on 2l/nc, 02sat remains at 100% 12/10/17 15:31 Labs unremarkable, no active vaginal bleeding noted. consulted dr munoz, contacted [facility] for Dr. Dominique. Dr. Atkinson called me back. She reports that the patient should experience some spotting after her procedure. She does not advise a transvaginal ultrasound. She is supposed to follow-up with them in 1 week. 12/10/17 Labs unremarkable no vaginal bleeding noted. Discussed plan of care with daughter for close to 30 minutes. Daughter feels safe taking patient home. Will have pillowcase cleaner to talk with daughter for plans of few mature care for her mother. - Vital Signs Vital signs: Temp Pulse Resp BP Pulse Ox 16 120/64 100 12/10/17 16:01 12/10/17 16:01 12/10/17 16:01 - Laboratory Result Diagrams: 12/10/17 13:08 12/10/17 13:08 Laboratory results interpreted by me: 12/10/17 12/10/17 12/10/17 13:08 13:08 13:08 Hct 35.5 L APTT 36.5 H Sodium 147.7 H Carbon Dioxide 35 H BUN 22 H Est GFR (Non-Af Amer) 53 L Glucose 137 H Urine Protein Ur Leukocyte Esterase Urine Ascorbic Acid 12/10/17 14:10 Hct APTT Sodium Carbon Dioxide BUN Est GFR (Non-Af Amer) Glucose Urine Protein 100 H Ur Leukocyte Esterase LARGE H Urine Ascorbic Acid 40 H - Diagnostic Test Radiology reviewed: Image reviewed, Reports reviewed - neg - EKG Interpretation by Me EKG shows normal: Sinus rhythm Discharge - Discharge Clinical Impression: Vaginal bleeding Condition: Stable Disposition: HOME, SELF-CARE Additional Instructions: *You have been evaluated for Vaginal bleeding *Monitor the bleeding as discussed. *Follow up with Dr Roberts next week as scheduled *Return to ED for worsening condition, changes, needs, vaginal bleeding- more than 1-2 kotex an hour Referrals: JOE BAZZI MD [Primary Care Provider] - Follow up in 1 week
[2017-12-10] MEDS ORDERED: ACETAMINOPHEN SUSP 160 MG/5 ML ORAL SYRING PO ONE (13:52)
--- NOTE | 2017-12-10 14:40 | RADIOLOGY REPORT (SQ) ---
EXAM DESCRIPTION: CHEST SINGLE VIEW COMPLETED DATE/TIME: 12/10/2017 2:25 pm REASON FOR STUDY: decreased 02sat COMPARISON: 04/01/2017 EXAM PARAMETERS: NUMBER OF VIEWS: One view. TECHNIQUE: Single frontal radiographic view of the chest acquired. RADIATION DOSE: NA LIMITATIONS: None. FINDINGS: LUNGS AND PLEURA: Left hemidiaphragm is chronically elevated. No pneumothorax, infiltrate , or effusion. MEDIASTINUM AND HILAR STRUCTURES: No masses. Contour normal. HEART AND VASCULAR STRUCTURES: Heart normal in size. Normal vasculature. BONES: No acute findings. HARDWARE: None in the chest. OTHER: No other significant finding. IMPRESSION: NO ACUTE RADIOGRAPHIC FINDING IN THE CHEST. TECHNICAL DOCUMENTATION: JOB ID: [id number] [employer]- All Rights Reserved Reading location - IP/workstation name: [email or web address]
[2017-12-10 14:53] LABS: APPEARANCE,URINE CLOUDY; BILIRUBIN,URINE NEGATIVE (NEGATIVE); COLOR,URINE YELLOW; GLUCOSE, URINE NEGATIVE (NEGATIVE); KETONES,URINE NEGATIVE (NEGATIVE); LEUKOCYTE ESTERASE,URINE LARGE (NEGATIVE); NITRITE,URINE NEGATIVE (NEGATIVE); PROTEIN,URINE 100 mg/dL (NEGATIVE); TRIPLE PHOSPHATE CRYSTAL,URINE TOO NUMEROUS TO CNT /HPF; URINE SPECIFIC GRAVITY 1.015; UROBILINOGEN,URINE NEGATIVE mg/dL (<2.0)
[2017-12-10 16:06] VITALS: BP 120/64
--- NOTE | 2017-12-10 21:44 | EKG REPORT ---
SEVERITY:- NORMAL ECG - SINUS RHYTHM : Confirmed by: Amira Morales MD 10-Dec-2017 21:43:39
== END 2017-12-10 17:00 | disposition home or self-care (01) ==
LOC: ER 11:16
DX: L89.322 Pressure ulcer of left buttock, stage 2 (principal); N93.8 Other specified abnormal uterine and vaginal bleeding; R06.2 Wheezing; G30.9 Alzheimer's disease, unspecified; F02.80 Dementia in other diseases classified elsewhere, unspecified severity, without behavioral disturbance, psychotic disturbance, mood disturbance, and anxiety; E78.00 Pure hypercholesterolemia, unspecified; I10 Essential (primary) hypertension; E11.9 Type 2 diabetes mellitus without complications; E03.9 Hypothyroidism, unspecified; Z85.3 Personal history of malignant neoplasm of breast; Z93.1 Gastrostomy status
CPT/HCPCS: 93005; 94640; 99285; 36415; 85025; 85610; 85730; 82272; 80053; 81001; 71045; 93010; 94660; A9270 ×2

== ENCOUNTER 2017-12-28 21:19 | Emergency (ER) | payer MEDICARE, MEDICAID ==
[2017-12-28] MEDS ORDERED: NORMAL SALINE 1000 ML 1,000 ML IV ONE (21:43)
--- NOTE | 2017-12-28 21:43 | ER Document Report ---
ED General - General Chief Complaint: Urinary Retention Stated Complaint: UNABLE TO URINATE Time Seen by Provider: 12/28/17 21:34 Mode of Arrival: Medic Information source: Relative Notes: 77-year-old female brought to the emergency department by EMS for urinary retention. Patient's daughter states that she has had only 250 cc of urine output today. She is concerned that the patient is not producing urine. She is worried that she might have a possible urinary tract infection. She states that the patient has also had some wheezing this more during well doing physical therapy. She wants that evaluated as well. She denies any fever, vomiting, diarrhea. TRAVEL OUTSIDE OF THE [place] IN LAST 30 DAYS: No - HPI Onset: Just prior to arrival Onset/Duration: Gradual Quality of pain: No pain Severity: None Pain Level: Denies Associated symptoms: None Exacerbated by: Denies Relieved by: Denies Similar symptoms previously: Yes Recently seen / treated by doctor: No - Related Data Allergies/Adverse Reactions: No Known Allergies Allergy (Verified 01/29/15 16:41) Past Medical History - General Information source: Relative Cannot obtain history due to: Dementia - Social History Smoking Status: Never Smoker Family History: Reviewed & Not Pertinent - Past Medical History Cardiac Medical History: Reports: Hx Hypercholesterolemia, Hx Hypertension Endocrine Medical History: Reports: Hx Diabetes Mellitus Type 2, Hx Hypothyroidism Renal/ Medical History: Denies: Hx Peritoneal Dialysis Malignancy Medical History: Reports: Hx Breast Cancer GI Medical History: Reports: Hx Gastroesophageal Reflux Disease Musculoskeltal Medical History: Reports Hx Arthritis, Reports Hx Muscle Weakness Psychiatric Medical History: Reports: Hx Anxiety, Hx Dementia, Hx Depression Past Surgical History: Reports: Hx Mastectomy - Left - Immunizations Hx Diphtheria, Pertussis, Tetanus Vaccination: Yes Review of Systems - Review of Systems -: Yes ROS unobtainable due to patient's medical condition Physical Exam - Vital signs Vitals: Pulse Ox 99 12/28/17 21:25 - Notes Notes: PHYSICAL EXAMINATION: GENERAL: Well-appearing, well-nourished and in no acute distress. HEAD: Atraumatic, normocephalic. EYES: Pupils equal round and reactive to light, extraocular movements intact, conjunctiva are normal. ENT: Nares patent, oropharynx clear without exudates. Moist mucous membranes. NECK: Normal range of motion, supple without lymphadenopathy LUNGS: Breath sounds clear to auscultation bilaterally and equal. No wheezes rales or rhonchi. HEART: Regular rate and rhythm without murmurs ABDOMEN: Soft, nontender, nondistended abdomen. No guarding, no rebound. No masses appreciated. Female : deferred Musculoskeletal: Normal range of motion, no pitting or edema. No cyanosis. NEUROLOGICAL: Cranial nerves grossly intact. Normal sensory, motor exams SKIN: Warm, Dry, normal turgor, no rashes or lesions noted. Course - Re-evaluation Re-evalutation: 12/29/17 00:02 Patient found to have UTI and posible L sided pneumonia vs atelectasis. Blood cultures obtained. Given 1G of rocephin in the ED to cover for pneumonia and UTI. Vitals are stable. WBC is normal. I will discharge the patient home on antibiotics and have her follow up outpatient with her PCP. - Vital Signs Vital signs: Temp Pulse Resp BP Pulse Ox 19 106/68 97 12/28/17 22:02 12/28/17 22:02 12/28/17 22:02 - Laboratory Result Diagrams: 12/28/17 22:30 12/28/17 22:30 Laboratory results interpreted by me: 12/28/17 12/28/17 12/28/17 21:38 22:30 22:30 RBC 3.65 L Hgb 11.7 L Hct 33.9 L Seg Neutrophils % 40.7 L Eosinophils % 7.8 H Carbon Dioxide 32 H BUN 28 H Urine Protein 100 H Urine Blood SMALL H Ur Leukocyte Esterase LARGE H Urine Ascorbic Acid 40 H Discharge - Discharge Clinical Impression: Urinary tract infection Qualifiers: Urinary tract infection type: catheter-associated UTI Indwelling urinary catheter type: indwelling urethral catheter Encounter type: initial encounter Qualified Code(s): T83.511A - Infection and inflammatory reaction due to indwelling urethral catheter, initial encounter Pneumonia Qualifiers: Pneumonia type: due to unspecified organism Laterality: left Lung location: unspecified part of lung Qualified Code(s): J18.9 - Pneumonia, unspecified organism Condition: Good Disposition: HOME, SELF-CARE Instructions: Pneumonia ([facility]), Urinary Tract Infection ([facility]) Prescriptions: Levofloxacin 750 mg PO DAILY #5 tablet Referrals: JOE BAZZI MD [Primary Care Provider] - Follow up as needed
[2017-12-28 21:58] LABS: APPEARANCE,URINE CLOUDY; BILIRUBIN,URINE NEGATIVE (NEGATIVE); GLUCOSE, URINE NEGATIVE (NEGATIVE); KETONES,URINE NEGATIVE (NEGATIVE); LEUKOCYTE ESTERASE,URINE LARGE (NEGATIVE); NITRITE,URINE NEGATIVE (NEGATIVE); PROTEIN,URINE 100 mg/dL (NEGATIVE); URINE SPECIFIC GRAVITY 1.018; UROBILINOGEN,URINE NEGATIVE mg/dL (<2.0)
[2017-12-28 22:01] LABS: COLOR,URINE YELLOW
--- NOTE | 2017-12-28 22:03 | RADIOLOGY REPORT (SQ) ---
EXAM DESCRIPTION: CHEST SINGLE VIEW COMPLETED DATE/TIME: 12/28/2017 9:53 pm REASON FOR STUDY: wheezing COMPARISON: 12/10/2017 EXAM PARAMETERS: NUMBER OF VIEWS: One view. TECHNIQUE: Single frontal radiographic view of the chest acquired. RADIATION DOSE: NA LIMITATIONS: None. FINDINGS: LUNGS AND PLEURA: There is opacification in the left base and there is blurring of the lef t hemidiaphragm. MEDIASTINUM AND HILAR STRUCTURES: No masses. Contour normal. HEART AND VASCULAR STRUCTURES: Heart normal in size. Normal vasculature. BONES: No acute findings. HARDWARE: None in the chest. OTHER: No other significant finding. IMPRESSION: Limited airspace disease in the left base. Pneumonia versus atelectasis. TECHNICAL DOCUMENTATION: JOB ID: [id number] [employer]- All Rights Reserved Reading location - IP/workstation name: [email or web address]
[2017-12-28] MEDS ORDERED: CEFTRIAXONE INJ 1000 MG VIAL IV ONE (22:09)
[2017-12-28 22:51] LABS: ABSOLUTE EOSINOPHILS # (AUTO) 0.6 10^3/uL (0.0-0.6); ABSOLUTE LYMPHOCYTES (AUTO) 3.3 10^3/uL (0.5-4.7); ABSOLUTE MONOCYTES (AUTO) 0.9 10^3/uL (0.1-1.4); ABSOLUTE NEUT (AUTO) 3.4 10^3/uL (1.7-8.2); BASOPHILS % (AUTO) 0.5 % (0-2); EOSINOPHILS % (AUTO) 7.8 % (0-6); HEMATOCRIT 33.9 % (36.0-47.0); HEMOGLOBIN 11.7 g/dL (12.0-15.5); LYMPHOCYTES % (AUTO) 39.7 % (13-45); MEAN CORPUSCULAR HEMOGLOBIN 32.1 pg (27.0-33.4); MEAN CORPUSCULAR HGB CONC 34.6 g/dL (32.0-36.0); MEAN CORPUSCULAR VOLUME 93 fl (80-97); MONOCYTES % (AUTO) 11.3 % (3-13); PLATELET COUNT 340 10^3/uL (150-450); RED BLOOD COUNT 3.65 10^6/uL (3.72-5.28); RED CELL DISTRIBUTION WIDTH 13.2 % (11.5-14.0); SEGMENTED NEUTROPHILS % (AUTO) 40.7 % (42-78); TOTAL CELLS COUNTED % (AUTO) 100 %; WHITE BLOOD COUNT 8.2 10^3/uL (4.0-10.5)
[2017-12-28 23:06] LABS: ALANINE AMINOTRANSFERASE 32 U/L (9-52); ALBUMIN 3.9 g/dL (3.5-5.0); ALKALINE PHOSPHATASE 87 U/L (38-126); ANION GAP 11 (5-19); ASPARTATE AMINO TRANSFERASE 29 U/L (14-36); BILIRUBIN,DIRECT 0.2 mg/dL (0.0-0.4); BILIRUBIN,TOTAL 0.4 mg/dL (0.2-1.3); BLOOD UREA NITROGEN 28 mg/dL (7-20); CALCIUM 9.6 mg/dL (8.4-10.2); CARBON DIOXIDE 32 mmol/L (22-30); CHLORIDE 102 mmol/L (98-107); GLUCOSE 98 mg/dL (75-110); SODIUM 144.9 mmol/L (137-145); TOTAL PROTEIN 7.5 g/dL (6.3-8.2)
[2017-12-28] MEDS ORDERED: HYDRALAZINE HCL INJ/PF 20 MG/1 ML SDV IV ONE (23:35)
[2017-12-29] MEDS ORDERED: IPRATROPIUM/ALBUTEROL 0.5-2.5 MG/3 ML AMPUL NEB ONE (00:02)
[2017-12-29 02:16] VITALS: BP 134/105
== END 2017-12-29 02:16 | disposition home or self-care (01) ==
LOC: ER 21:19
DX: T83.511A Infection and inflammatory reaction due to indwelling urethral catheter, initial encounter (principal); J18.9 Pneumonia, unspecified organism; X58.XXXA Exposure to other specified factors, initial encounter; E78.00 Pure hypercholesterolemia, unspecified; I10 Essential (primary) hypertension; E11.9 Type 2 diabetes mellitus without complications; E03.9 Hypothyroidism, unspecified; Z85.3 Personal history of malignant neoplasm of breast
CPT/HCPCS: 94640; 99284; 96361; 96365; 36415; 87040; 85025; 80053; 81001; 71045; J0696; J7030; A9270; J7620